=== PATIENT | female | born 1995 | race Two or more races ===

== ENCOUNTER 2018-09-03 21:49 | Emergency (ER) | payer OTHER ==
[~2018-09-03] VITALS: Ht 165.1 cm; Wt 76.4 kg
[2018-09-03 23:50] VITALS: BP 126/80
== END 2018-09-04 01:00 | disposition left against medical advice (07) ==
LOC: EMS 21:54
DX: H92.03 Otalgia, bilateral (principal); Z53.21 Procedure and treatment not carried out due to patient leaving prior to being seen by health care provider